=== PATIENT | male | born 1995 | race American Indian/Alaskan Native ===

== ENCOUNTER → 2017-01-15 | Outpatient (CLI) | payer OTHER ==
--- NOTE | 2017-01-16 20:00 | RADIOLOGY REPORT PS360 ---
CHEST(2 VIEWS-NOT PORTABLE) Ordering Physician: Balwinder Bates MD Patient Age: 21 years: Male HISTORY: ACUTE URI cough congestion 3 days. Smoker. TECHNIQUE: PA and lateral chest. COMPARISON :Previous chest film 09/29/2012. FINDINGS No significant new findings. No discrete nor definitive pneumonia. Upper normal markings seen towards left lung base but no definitive pneumonic infiltrate. The heart sage and mediastinal structures appear satisfactory. No pleural effusion or pneumothorax. Chest wall and T-spine appears stable with no active disease evident. IMPRESSION: . Nothing definitely acute. Upper normal markings toward the left lung base most likely is stable feature with no definitive pneumonia.
== END ==
LOC: RAD 11:13
DX: J06.9 Acute upper respiratory infection, unspecified (principal)